=== PATIENT | female | born 1970 | race African-American/Black ===

== ENCOUNTER 2017-06-20 07:59 | Emergency (ER) | payer OTHER ==
[~2017-06-20] VITALS: Ht 160 cm; Wt 59.1 kg
[2017-06-20] MEDS ORDERED: LOSA50TA37 PO (08:02)
[2017-06-20] MEDS ORDERED: HYDR200T4 PO (08:02)
[2017-06-20] MEDS ORDERED: AMLO-511 PO (08:02)
[2017-06-20] MEDS ORDERED: HYDR25TA PO (08:02)
[2017-06-20] MEDS ORDERED: FOLI1 PO (08:02)
[2017-06-20] MEDS ORDERED: DIAZEPAM 5 MG TABLET PO ONE (10:15)
[2017-06-20] MEDS ORDERED: KETOROLAC TROMETHAMINE 60 MG/2 ML VIAL IM ONE (10:15)
[2017-06-20 10:38] VITALS: BP 132/83
== END 2017-06-20 10:49 | disposition home or self-care (01) ==
LOC: EMS 08:06
DX: S13.4XXA Sprain of ligaments of cervical spine, initial encounter (principal); M62.838 Other muscle spasm; X50.0XXA Overexertion from strenuous movement or load, initial encounter; Y93.89 Activity, other specified; Y92.89 Other specified places as the place of occurrence of the external cause; Y99.8 Other external cause status
CPT/HCPCS: 96372; 99283; J1885